=== PATIENT | male | born 1990 | race Caucasian/White ===

== ENCOUNTER 2020-09-09 13:56 | Emergency (ER) | payer SELFPAY ==
[~2020-09-09] VITALS: Ht 185.4 cm; Wt 127.0 kg
[2020-09-09 14:02] VITALS: BP 158/84
[2020-09-09] MEDS ORDERED: KETOROLAC 30 MG/ML VIAL IM ONE (15:00)
[2020-09-09 15:14] VITALS: BP 158/84
== END 2020-09-09 15:14 | disposition home or self-care (01) ==
LOC: MED 13:56
DX: M26.69 Other specified disorders of temporomandibular joint (principal); W20.8XXA Other cause of strike by thrown, projected or falling object, initial encounter; Y93.89 Activity, other specified; Y92.89 Other specified places as the place of occurrence of the external cause; Y99.8 Other external cause status
CPT/HCPCS: 96372; 99283; J1885